=== PATIENT | male | born 2000 | race Two or more races ===

== ENCOUNTER 2022-03-19 19:48 | Emergency (ER) | payer BC ==
[~2022-03-19] VITALS: Ht 185.4 cm; Wt 90.9 kg
[2022-03-19 19:56] VITALS: BP 137/89
--- NOTE | 2022-03-19 22:12 | NUR ---
spoke with radiologist regarding report of knee xray.
== END 2022-03-19 22:32 | disposition home or self-care (01) ==
LOC: ER 19:49
DX: M25.561 Pain in right knee (principal); M25.461 Effusion, right knee
CPT/HCPCS: 29505; 73564; 99283